=== PATIENT | male | born 1960 | race Caucasian/White ===

== ENCOUNTER 2016-07-08 18:27 | Inpatient (IN) | payer OTHER ==
[~2016-07-08] VITALS: Ht 172.7 cm; Wt 68.2 kg
--- NOTE | ~2016-07-08 | HC ---
[facility] [place] [address] CONSULTATION Name: ADEBAYO COPPOLA Room #: 432-P ADM IN ..#: [id number] Admission: 07/08/16 Attend Phys: Carmelo Beavers MD Discharge: Date of : 56 Report #: [id number] THIS REPORT FOR: //name// CC: [facility] physician/PCP Carmelo Beavers HISTORY OF PRESENT ILLNESS: The patient is a 56-year-old male who I actually been acquainted with from admission last August. Admitted with a CVA. Recently released from the [facility] longterm, for an arms violation. He had actually had a cardiac catheterization here in August of last year, normal coronary arteries. He had no prior strokes. Although he states he had some difficulty with ambulating and the CT of the brain revealed some prior infarcts. The echocardiogram previously had been in the lower limits of normal. Apparently, there was some slurred speech, which appears to have cleared, some question of hypovolemia. He has been living in houses that he rehabs so he does not really have place of residence. He had been on no home medications. He currently is on aspirin, meclizine, Zofran, levothyroxine, atorvastatin. PAST MEDICAL HISTORY: Positive for the cardiac catheterization last year and some questionable old CVA, LV function lower limits of normal, some DJD, hypothyroidism, femur fracture, arm fracture, right foot surgery x 2. SOCIAL HISTORY: He has one child. He lives independently. He lives in houses that he rehabs, he is a pack a day a daily alcohol and tobacco user. No illicit drugs. He had previously been to correction for an arms violation, remotely a connected felon he states. REVIEW OF SYSTEMS: Negative except for occasional weakness and some nocturia. FAMILY HISTORY: Parents had premature disease. Two siblings have from cancer, mother and father had an infarct at 62, he believes the mother had a cerebral bleed in her 60s. LABORATORY DATA: Creatinine 1.0, potassium 4.0. Troponin 0.11. This is not significant, this is indeterminate range. It has actually gone down from 0.15. Cholesterol 207, LDL 140, triglycerides 85, HDL 50, drug screen positive for opioids. H and H 11.1 and 33.4. White cell count 6.9. Ultrasound of carotids reveal no evidence hemodynamically significant lesion. MRA no hemodynamically significant stenosis, branch occlusion or no branch occlusion or aneurysms noted on the MRA and MRI, infarction and bilateral cortical subcortical cerebral hemispheres right greater than left. No mass effect. PHYSICAL EXAMINATION: GENERAL: Pleasant, alert, fully voicing no complaints. VITAL SIGNS: Blood pressure 126/82. Pulse is 50s-60s and sinus nadia to sinus. HEENT: Eyes reveal xanthelasmas. Pharynx is clear. NECK: Shows preserved upstrokes without JVD or bruits. [address] [address] CONSULTATION Name: ADEBAYO COPPOLA Room #: 432-P [facility] IN M.R.#: [id number] Admission: 07/08/16 Attend Phys: Carmelo Beavers MD Discharge: Date of : 56 Report #: [id number] LUNGS: Clear, slight prolonged expiratory phase. CARDIOVASCULAR: Regular rate and rhythm, S1, S2. No murmur or gallop. ABDOMEN: Soft. No HSM or abdominal bruit. EXTREMITIES: Reveal no edema. Pulses intact. NEUROLOGIC: Nonfocal and seems to have appropriate normal strength. SKIN: Warm and dry without xanthoma or ulcer. ASSESSMENT: 1. Question of cerebrovascular accident, although no persistent findings, that looks like a subacute strokes on MRI. 2. Hypercholesterolemia. 3. Sinus bradycardia. 4. Anemia. PLAN: We will proceed with CLAUDINE looking for source embolic event. I do not recommend any further cardiovascular testing at this time, but certainly agree with statin and may would even increase the dose of atorvastatin from 20-40. By trying to further plaque stabilization, try VLDL down less than 100, no blood pressure medicines or cardiovascular medicines currently indicated here, aspirin and statin and CLAUDINE in the a.m. This had been discussed with patient, risks and benefits, Dr. Tobias, my partner will be performing. <ELECTRONICALLY SIGNED> By: Mehul Aragon MD, FACC 07/13/16 0904 1046 1131 Mehul Aragon MD, FACC /nt
--- NOTE | ~2016-07-08 | EKG ---
[address] [place] [address] ELECTROCARDIOGRAM REPORT Name: ADEBAYO COPPOLA Room #: 432-P ADM IN M.R.#: [id number] Admission: 07/08/16 Attend Phys: Carmelo Beavers MD Discharge: Date of : 56 Report #: [id number] THIS REPORT FOR: //name// [facility] ED Test Date: 2016-07-08 Test Time: 19:48:06 Pat Name: ADEBAYO COPPOLA Department: Room: 432 Gender: M Social Work Supervisor: LEANDRO : 1960 Requested By: Lili Gallardo Order Number: [id number] MD: Gabriele Tobias Measurements Intervals [place] Rate: 56 P: 63 NE: 162 QRS: -35 QRSD: 103 T: 64 QT: 452 QTc: 437 Interpretive Statements Sinus rhythm Left axis deviation Borderline low voltage, extremity leads Nonspecific T wave abnormality Baseline wander in lead(s) V6 Compared to ECG 08/31/2015 07:59:37 T wave abnormalities are present Electronically Signed On 07-09-2016 9:02:51 CDT by Gabriele Tobias [email or web address] <ELECTRONICALLY SIGNED> By: Gabriele Tobias MD, FACC 07/09/16 0902 47 47 Gabriele Tobias MD, [facility] /EPI
--- NOTE | ~2016-07-08 | HC ---
[facility] [place] [address] CONSULTATION Name: ANATADEBAYO Room #: 432-P ADM IN .R.#: [id number] Admission: 07/08/16 Attend Phys: Carmelo Beavers MD Discharge: Date of : 56 Report #: [id number] THIS REPORT FOR: //name// CC: [facility] physician/PCP Pamela Beavers MD DATE OF SERVICE: 07/11/2016 This is a 56-year-old male patient who was seen by me first time today. This patient has been seen by Dr. Metcalf in the past. This patient complains of nonspecific visual disturbances, which is of moderate severity. It started spontaneously. Exact duration is not clear because this patient is a poor historian. According to the records, this started on the morning of admission. He also has ambulation difficulty, which is also moderately severe and he attributes that to ataxia. That also came spontaneously and he does not know whether he has become any worse or not. He does not know anything, which makes it better or worse. He has a recent history of AL. He said he was managed by cardiology. He said he was taking aspirin and Plavix when this happened. He denies any definite history of atrial fibrillation. He does have some dizziness, he is not having any new respiratory symptoms like respiratory difficulty. PHYSICAL EXAMINATION: Indicate he is alert. He is responsive. His speech looks intact. His fund of knowledge and memory is diminished. Cranial nerve examination 2-12 clinically looks unremarkable, but he complain of fact that his vision has decreased. He is able to count fingers , but his vision is not as good as it was before according to him. His strength looks symmetrical. His problem appeared to be secondary to ataxia. I tried to look at the fundus, but I could not. He does not appear to have any atrial fibrillation. His heart sounds looks unremarkable. He does have some rhonchi, but he does not have any marked respiratory difficulty. His vital signs indicate a blood pressure of 134/111, respiration is 18, pulse is 60, temperature is 98.1. LABORATORY DATA: Indicated that his TSH is high indicating hypothyroidism, his B12 is also on the lower side. His MRI was reviewed and he has multiple strokes in multiple distributions including the occipital lobes. His carotid Doppler is clean and his MRA is clean indicating that the strokes are most likely cardioembolic. IMPRESSION: 1. Multiple stroke in multiple distributions, which are most likely cardioembolic. This is because it is in multiple vascular distribution and his intracranial and extracranial vasculature looks clean. [address] [address] CONSULTATION Name: ADEBAYO COPPOLA Room #: 432-P [facility] IN .R.#: [id number] Admission: 07/08/16 Attend Phys: Carmelo Beavers MD Discharge: Date of : 56 Report #: [id number] 2. Visual disturbances, which is most likely secondary to stroke, which are in occipital region. 3. Hypothyroidism, which may contribute to ataxia, but ataxia may also of multiple stroke this patient has. 4. Low B12. That can increase homocysteine and can increase his chances of having stroke. 5. Smoking, which he must quit because of his cardiac as well as respiratory disease. RECOMMENDATIONS: 1. Cardiology consult to evaluate the patient for any source of embolization from the heart. He needs CLAUDINE and depending upon that CLAUDINE he will also need prolonged monitoring for looking for any atrial fibrillation until the CLAUDINE shows some cause for the patient's stroke. 2. Extensive workup to exclude any other possibility of stroke, which happened in spite of complete antiplatelet therapy and we need to see what we need to do about secondary stroke prophylaxis. 3. More workup including hypercoagulable profile, homocysteine level, cardiolipin antibodies. I had a long talk with this patient and I discussed all of it with the patient and told him that he needs to stop smoking and the plan are going to follow. He understands that. More than 35 minutes of vhpw-ib-[id number] time was spent taking care of this patient and majority of that time was spent counseling the patient about my impression, the workup we are going to do, the things he needs to do including stop smoking and coordinating this patient's care. By: 1258 2100 Gabriele Mason MD /nt
--- NOTE | ~2016-07-08 | TEE ---
[facility] [place] [address] TRANSESOPHAGEAL ECHOCARDIOGRAM Name: FADYNIMISHAADEBAYO Room #: 432-P [facility] IN [facility]#: [id number] Admission: 07/08/16 Attend Phys: Carmelo Beavers MD Discharge: 07/13/16 Date of : 56 Date of Service: 07/13/16 0703 Report #: [id number] THIS REPORT FOR: //name// Transesophageal Echocardiography (Report amended ) Ordering physician: Pamela Metcalf Referring physician: Learning Program Manager: Clarissa Doss Nurse: Cherri Nixon RN Indications/History: CVA BP: 124 / HR: 71bpm Height: 68in Weight: 150lb 69 Study data: 2D, complete spectral Doppler, and color Doppler. Location: Echo laboratory. Routine. Informed consent was obtained. Patient was kept NPO. Conscious sedation was administered by cardiology staff. Versed:5mg IV.Fentenyl: 75mcg IV. Topical anesthesia was obtained using Cetacaine. The probe was passed without difficulty. Intravenous contrast (agitated saline) was administered. The probe was withdrawn after the study. Image quality was adequate. The patient tolerated the procedure well. There were no complications. Contrast: Agitated saline demonstrated no evidence of shunt. Findings: Left ventricle: The cavity size was normal. Wall thickness was normal. Systolic function was normal in the range of 50% to 55%. Wall motion was normal. Trabeculations of left ventricle raise concern over the possibility of left ventricular noncompaction. Correlation with MRI suggested. Right ventricle: The cavity size was normal. Systolic function was normal. Right atrium: The atrium was normal in size. Left atrium: The atrium was normal in size. No evidence of thrombus in the atrial cavity or appendage. The appendage was of normal size. [address] [address] TRANSESOPHAGEAL ECHOCARDIOGRAM Name: ADEBAYO COPPOLA Room #: 432-P [facility] IN [place]#: [id number] Admission: 07/08/16 Attend Phys: Carmelo Beavers MD Discharge: 07/13/16 Date of : 56 Date of Service: 07/13/16 0703 Report #: [id number] Atrial septum: No defect or patent foramen ovale was identified with bubble study. Aortic valve: Trileaflet; mildly sclerotic leaflets. Doppler: There was no stenosis. Mild regurgitation. Mitral valve: Structurally normal valve. Doppler: There was no evidence for stenosis. Mild regurgitation. Tricuspid valve: Structurally normal valve. Doppler: There was no evidence for stenosis. Trivial regurgitation. Pulmonic valve: Structurally normal valve. Doppler: There was no evidence for stenosis. Trivial regurgitation. Pericardium: There was no pericardial effusion. Aorta: There was no atheroma. There was no evidence for aneurysm. Aortic root: The aortic root was normal in size. Ascending aorta: The ascending aorta measured at the upper limits of normal. Contrast: Agitated saline demonstrated no evidence of shunt. Conclusions 1. Left ventricle: Systolic function was normal in the range of 50% to 55%. 2. Left atrium: No evidence of thrombus in the atrial cavity or appendage. 3. Atrial septum: No defect or patent foramen ovale was identified with bubble study. 4. Aortic valve: Trileaflet; mildly sclerotic leaflets. There was no stenosis. Mild regurgitation. 5. Mitral valve: Structurally normal valve. Mild regurgitation. 6. Pericardium, extracardiac: There was no pericardial effusion. 7. Aorta: There was no atheroma. There was no evidence for aneurysm. 8. Aortic root: The aortic root was normal in size. <ELECTRONICALLY SIGNED> By: Gabriele Tobias MD, [facility] 07/14/16 0943 0703 0943 Gabriele Tobias MD, FACC /bunny
--- NOTE | ~2016-07-08 | 2DMMODE ---
[facility] [place] [address] 2 D/M-MODE ECHOCARDIOGRAM Name: ADEBAYO COPPOLA Room #: 432-P [facility] IN ..#: [id number] Admission: 07/08/16 Attend Phys: Carmelo Beavers MD Discharge: Date of : 56 Date of Service: 07/09/16 1048 Report #: [id number] THIS REPORT FOR: //name// APPROVED REPORT EXAM: Comprehensive 2D, Doppler, and color-flow Echocardiogram Patient Location: Bedside/Room 432 Blood Pressure: 124/69 mmHg HR: 60 bpm Rhythm: NSR Other Information Study Quality: Good Indications Slurred speech. Question TIA. Echo Enhancing Agent Indication: Rule out Shunt Agent/Amount Used: Agitated Saline cc 2D Dimensions RVDd: 36.61 mm LVEF(%): 44.62 (>50%) IVSd: 8.71 (7-11mm) LVOT Diam: 23.41 (18-24mm) LVDd: 58.39 mm PWd: 9.49 (7-11mm) Ascending Aorta: 38.31 mm LVDs: 45.25 (25-40mm) Aortic Root: 39.00 mm Jordan's LVEF: 44.62 % Volumes Left Atrial Volume (Systole) Single Plane 4CH: 45.01 mL Single Plane 2CH: 52.15 mL LA ESV Index: 29.00 mL/m2 Aortic Valve AoV Peak Jose.: 1.36 m/s AI PHT: 687.11 ms AO Peak Gr.: 7.40 mmHg LV Max P.68 mmHg LV Max: 0.96 m/s AI Vmax: 4.56 m/s AI [place]: 1.92 m/s2 [facility] [address] [place] [address] 2 D/M-MODE ECHOCARDIOGRAM Name: ADEBAYO COPPOLA Room #: 432-P ADM IN .R.#: [id number] Admission: 07/08/16 Attend Phys: Carmelo Beavers MD Discharge: Date of : 56 Date of Service: 07/09/16 1048 Report #: [id number] Mitral Valve MV PHT: 73.85 ms MV E Max Jose.: 0.67 m/s E/A Ratio: 1.5 MV A Jose.: 0.45 m/s MV Decel. Time: 254.65 ms TDI E/Lateral E': 7.00 E/Medial E': 8.00 Pulmonary Valve PV Peak Jose.: 0.72 m/s PV Peak Gr.: 2.05 mmHg Tricuspid Valve TR Peak Jose.: 2.10 m/s RAP Estimate: 5.00 mmHg TR Peak Gr.: 17.56 mmHg RVSP: 23.00 mmHg Left Ventricle Left ventricle is mildly dilated. Cannot rule out hypokinesis involving base of inferior wall. There is normal left ventricular wall thickness. Left ventricular systolic function is mildly decreased. LVEF is 45%. Grade II - pseudonormal filling dynamics. Right Ventricle The right ventricle is normal size. The right ventricular systolic function is normal. Atria The left atrium size is normal. Injection of bubbles documented no interatrial shunt. The right atrium size is normal. Aortic Valve The aortic valve is mildly sclerotic Mild aortic regurgitation. There is no aortic valvular stenosis. Mitral Valve The mitral valve is normal in structure. Mild to moderate mitral regurgitation. There is no mitral valve stenosis. Tricuspid Valve The tricuspid valve is normal in structure. There is trace tricuspid regurgitation. The right atrial pressure is estimated at 5 mmHg. Right ventricular systolic pressure is estimated at 23 mmHg. Pulmonic Valve The pulmonary valve is normal in structure. Trace pulmonic [address] [address] 2 D/M-MODE ECHOCARDIOGRAM Name: KATHIESHAWNADEBAYO Room #: 432-P [facility] IN ..#: [id number] Admission: 07/08/16 Attend Phys: Carmelo Beavers MD Discharge: Date of : 56 Date of Service: 07/09/16 1048 Report #: [id number] regurgitation. Great Vessels Aortic root is mildly dilated. The ascending aorta is mildly dilated. IVC is normal in size and collapses >50% with inspiration. Pericardium There is no pericardial effusion. <Conclusion> Left ventricle is mildly dilated. Left ventricular systolic function is mildly decreased. LVEF 45%. Grade II - pseudonormal filling dynamics. Cannot rule out hypokinesis involving base of inferior wall. The aortic valve is mildly sclerotic, mild regurgitation, no stenosis. The mitral valve is normal in structure. Mild to moderate mitral regurgitation. There is trace tricuspid regurgitation. The right atrial pressure is estimated at 5 mmHg. Right ventricular systolic pressure is estimated at 23 mmHg. There is no pericardial effusion. <ELECTRONICALLY SIGNED> By: Gabriele Tobias MD, FACC 07/09/16 1048 1048 1048 Gabriele Tobias MD, FACC /INF
--- NOTE | ~2016-07-08 | EKG ---
[address] [address] ELECTROCARDIOGRAM REPORT Name: ADEBAYO COPPOLA Room #: 432-P ADM IN M.R.#: [id number] Admission: 07/08/16 Attend Phys: Carmelo Beavers MD Discharge: Date of : 56 Report #: [id number] THIS REPORT FOR: //name// Test Date: 2016-07-12 Test Time: 09:51:37 Pat Name: ADEBAYO COPPOLA Department: Room: 432 P Gender: M Warehouse Guard: GRACE : 1960 Requested By: Carmelo Beavers Order Number: [id number] MD: Gabriele Tobias Measurements Intervals [place] Rate: 51 P: 58 MA: 166 QRS: -11 QRSD: 104 T: -28 QT: 479 QTc: 442 Interpretive Statements Sinus rhythm Low voltage, extremity leads Compared to ECG 07/08/2016 19:48:06 No significant change was found Electronically Signed On 07-13-2016 9:06:47 CDT by Gabriele Tobias [email or web address] <ELECTRONICALLY SIGNED> By: Gabriele Tobias MD, [facility] 07/13/1606 0 0 Gabriele Tobias MD, [facility] /EPI
--- NOTE | ~2016-07-08 | HC ---
[facility] [place] [address] CONSULTATION Name: ADEBAYO COPPOLA Room #: 432-P [facility] IN .R.#: [id number] Admission: 07/08/16 Attend Phys: Carmelo Beavers MD Discharge: Date of : 56 Report #: [id number] THIS REPORT FOR: //name// CC: [facility] physician/PCP Carmelo Beavers DATE OF SERVICE: 07/10/2016 HISTORY OF PRESENT ILLNESS: The patient is a 56-year-old white male who was noted to be recently released from group home approximately 6 months ago. He had been staying with his ex-. He was premorbidly independent, ambulatory without gait aids. He had the onset of dizziness, vision changes, lower extremity weakness. He was admitted to [facility] and MRI revealed multiple strokes, bilateral hemispheres. He had some right-hand clumsiness, slurred speech. Neurology is involved. We are seeing him in rehabilitation medicine consultation. PAST MEDICAL HISTORY: Includes tobacco abuse which was active premorbidly, every day smoker. PAST SURGICAL HISTORY: Included right foot surgery x2, left arm fracture, left femur fracture. ALLERGIES: No known drug allergies. MEDICATIONS: Please see the full medication listing. SOCIAL HISTORY: Apparently, evicted from his ex-'s house. He had been staying with his brother. There is a daughter that is in town as well. Presently, he is noted to be homeless. Did not utilize gait aids premorbidly. REVIEW OF SYSTEMS: Did not offer any current complaints of chest pain, shortness of breath or abdominal discomfort. Complains of the right arm discoordination. He has some balance deficits. Notes his visual problems are overall better and the dizziness appears improved. No focal extremity pain complaints. PHYSICAL EXAMINATION: GENERAL: A 56-year-old white male in no obvious distress. He is alert, oriented. VITAL SIGNS: Last recorded temperature 98.3, pulse 62, respirations 18 and blood pressure 127/74. HEENT: Appeared to be benign. NEUROLOGIC: Cranial nerves are grossly intact. Facies are symmetric. He has functional range of motion of both upper extremities. He does have some problems with fine finger dexterity and [id number]-[id number] right upper extremity [facility] [address] [place] [address] CONSULTATION Name: ADEBAYO COPPOLA Room #: 432-P [facility] IN ..#: [id number] Admission: 07/08/16 Attend Phys: Carmelo Beavers MD Discharge: Date of : 56 Report #: [id number] more than left upper extremity with some decreased coordination noted. Lower extremities functional range of motion, strength is a grade 4+/5. He may have some mild decreased coordination as well. Tone appeared to be intact. Sit to stand is contact guard assist and he did ambulate 20 feet mod assist with a front-wheeled walker. Speech therapy is involved and notes moderate cognitive deficits with severe memory deficits. ASSESSMENT: A 56-year-old right-handed white male with the following problem list: 1. Multiple bilateral hemispheric strokes. 2. Right upper extremity greater than lower extremity clumsiness. 3. Dysarthria. 4. Gait instability. 5. Moderate cognitive deficits with significant decreased memory. 6. Tobacco abuse. 7. Currently homeless. PLAN: Therapies are underway as noted above. Insurance issues will be checked into regarding a rehabilitation stay. While he is homeless, he does have contacts that he noted with his brother and with his daughter, so there may be some potential possibilities for him as far as a living situation. At this point, we will continue to follow along with you regarding his rehab therapy needs. By: 1324 1613 Adebayo Romero MD /nt
[2016-07-08 05:00] VITALS: BP 122/78
[~2016-07-08 18:27] MED LIST: AUGMENTIN 875-1 EACH PO
[2016-07-08 18:31] VITALS: BP 116/78
[2016-07-08 18:47] LABS: ABSOLUTE NEUTROPHILS 7.1 thou/uL (1.4-8.2); BASOPHILS 0.4 % (0.0-2.0); EOSINOPHILS 0.2 % (0.0-3.0); HEMOGLOBIN 12.1 gm/dL (14.0-18.0); LYMPHOCYTES 10.9 % (24.0-44.0); MCH 31.3 pg (26.0-34.0); MCHC 33.6 g/dL (28.0-37.0); MCV 93.1 fL (80.0-100.0); MONOCYTES 5.1 % (1.0-8.0); PLATELET COUNT 135 thou/uL (150-400); POLYS 83.4 % (36.0-66.0); RBC 3.87 mil/uL (4.50-6.00); WBC 8.5 thou/uL (4.0-11.0)
[2016-07-08 18:56] LABS: CALCIUM 8.9 mg/dL (8.5-10.1); CREATININE 0.9 mg/dL (0.6-1.3)
[2016-07-08 18:58] LABS: MANUAL DIFF NO
[2016-07-08 21:02] VITALS: BP 116/78; BP 135/87
[2016-07-08 21:30] VITALS: BP 78/58
[2016-07-09 04:00] VITALS: BP 98/59
[2016-07-09 05:12] VITALS: BP 122/78
[2016-07-09 06:58] LABS: TSH 27.913 uIU/mL (0.358-3.740)
[2016-07-09 07:55] VITALS: BP 124/69
[2016-07-09 08:35] LABS: CHOLESTEROL 207 mg/dL (<200); HDL CHOLESTEROL 50 mg/dL (>40); LDL CHOLESTEROL 140 mg/dL (<100); TC:HDL 4.1 Ratio (Not establshd); TRIGLYCERIDE 85 mg/dL (<150); VLDL 17 mg/dL (<40)
[2016-07-09 16:07] VITALS: BP 122/77
[2016-07-09 20:15] VITALS: BP 90/66
[2016-07-09 21:29] LABS: GLYCOHEMOGLOBIN (HGB A1C) 4.8 % (4.8-5.6)
[2016-07-10 04:20] LABS: HEMATOCRIT 33.4 % (42.0-52.0); HEMOGLOBIN 11.1 gm/dL (14.0-18.0); MCH 30.8 pg (26.0-34.0); MCHC 33.1 g/dL (28.0-37.0); MCV 93.1 fL (80.0-100.0); RBC 3.59 mil/uL (4.50-6.00); RDW 15.2 % (10.5-14.5); WBC 6.9 thou/uL (4.0-11.0)
[2016-07-10 04:32] LABS: CALCIUM 8.2 mg/dL (8.5-10.1); POTASSIUM 3.8 mmol/L (3.5-5.1)
[2016-07-10 05:50] VITALS: BP 132/83
[2016-07-10 07:15] VITALS: BP 127/74
[2016-07-10 15:10] VITALS: BP 135/82
[2016-07-10 15:15] LABS: AMP/METHAMP Negative (Negative); BARBITURATES Negative (Negative); BENZODIAZEPINES Negative (Negative); COCAINE Negative (Negative); METHADONE Negative (Negative); OPIATES POSITIVE (Negative); PCP Negative (Negative); THC Negative (Negative)
[2016-07-10 20:00] VITALS: BP 128/91
[2016-07-11 04:00] VITALS: BP 129/71
[2016-07-11 08:26] VITALS: BP 134/111
[2016-07-11 14:39] LABS: ALBUMIN 3.2 g/dL (3.4-5.0); CALCIUM 8.4 mg/dL (8.5-10.1); TOTAL BILIRUBIN 0.5 mg/dL (<0.1-1.0); TOTAL PROTEIN 6.1 g/dL (6.4-8.2)
[2016-07-11 16:16] VITALS: BP 154/79
[2016-07-11 20:00] VITALS: BP 145/90
[2016-07-12 04:00] VITALS: BP 128/83
[2016-07-12 08:15] VITALS: BP 126/82
[2016-07-12 16:23] VITALS: BP 118/76
[2016-07-12 20:00] VITALS: BP 141/86
[2016-07-13 04:00] VITALS: BP 139/82
[2016-07-13 14:11] LABS: SYPHILIS AB Negative (Negative)
[2016-07-13] MEDS ORDERED: LIPITOR 20 MG T20 M1 PO (15:26)
[2016-07-13] MEDS ORDERED: ASPIR 8181 MG PO (15:26)
[2016-07-13] MEDS ORDERED: TIROSINT75 MCG PO (15:27)
[2016-07-13] MEDS ORDERED: VITAMIN B-1100 M2 PO (15:29)
[2016-07-14 22:06] LABS: ANTITHROMBIN III 117 % (75-135); DIL. RUSSELL VIPER VENOM 42.1 sec (0.0-44.0)
== END 2016-07-13 18:20 | DRG 66 ==
LOC: ER 18:27 → EROBS 20:26 → 4E 20:26
PROVIDERS: Emergency Medicine; Hospitalist; Nurse Practitioner; Psychiatry & Neurology Neurology; Psychiatry & Neurology Neuromuscular Medicine
DX: I63.9 Cerebral infarction, unspecified (principal); F17.210 Nicotine dependence, cigarettes, uncomplicated; R11.2 Nausea with vomiting, unspecified; F19.90 Other psychoactive substance use, unspecified, uncomplicated; E03.9 Hypothyroidism, unspecified; M19.90 Unspecified osteoarthritis, unspecified site; E78.00 Pure hypercholesterolemia, unspecified; F71 Moderate intellectual disabilities; H53.9 Unspecified visual disturbance; R00.1 Bradycardia, unspecified; D64.9 Anemia, unspecified; R47.1 Dysarthria and anarthria; E86.0 Dehydration; Z80.9 Family history of malignant neoplasm, unspecified; Z82.49 Family history of ischemic heart disease and other diseases of the circulatory system; Z87.81 Personal history of (healed) traumatic fracture; Z71.6 Tobacco abuse counseling; Z59.0 Homelessness; Z23 Encounter for immunization; Z86.73 Personal history of transient ischemic attack (TIA), and cerebral infarction without residual deficits
CPT/HCPCS: 10183

== ENCOUNTER 2016-07-13 13:54 | Inpatient (IN) | payer OTHER ==
[~2016-07-13] VITALS: Ht 172.7 cm; Wt 67.8 kg
--- NOTE | ~2016-07-13 | PLAN ---
[facility] [place] [address] REHAB UNIT PLAN OF CARE Name: JUANCARLOS COPPOLA Room #: 513-P ADM IN M.R.#: [id number] Admission: 07/13/16 Attend Phys: Juancarlos Romero MD Discharge: Date of : 56 Report #: [id number] THIS REPORT FOR: //name// CC: Juancarlos Romero [facility] physician/PCP DATE OF SERVICE: 07/15/2016 HISTORY: The patient is seen back today in followup. He is in no distress. Temperature 36.7, pulse 56, respirations 18 and blood pressure 121/79. Facies appeared symmetric. No focal calf swelling. He is transferring with min assist and is ambulating 150 feet mod assist without a device. He has been able to go up and down 4 steps with min assist. In occupational therapy, upper body dressing is supervision with lower body dressing contact guard assistance. In speech therapy, he has mild comprehensive deficits with mild expressive deficits. ASSESSMENT: 1. Multiple bilateral hemispheric strokes. 2. Right upper extremity greater than lower extremity clumsiness. 3. Dysarthria. 4. Gait instability. 5. Mild cognitive deficits with some significant decreased memory. 6. Tobacco abuse. 7. Social discharge issues. PLAN: The overall plan of care is based on the preadmission screen, post-admission physician evaluation and information garnered from therapy assessments. 1. Estimated length of stay is probably 2 weeks. 2. Medical prognosis reasonably good. 3. Anticipated interventions includes the interdisciplinary acute inpatient rehabilitation program with PT and OT and speech, rehabilitation nursing assisting regarding medication management, skin care prophylaxis, bowel and bladder issues and nursing education. 4. Anticipated functional outcomes would be for the patient to become modified independent with mobility, ADLs at least at the walker level as well as improvement with cognition. 5. Discharge destination is uncertain at this time. Would anticipate home with family. 6. Expected therapy by discipline includes PT, OT and speech 1 hour per day [address] [address] REHAB UNIT PLAN OF CARE Name: JUANCARLOS COPPOLA Room #: 513-P [facility] IN ..#: [id number] Admission: 07/13/16 Attend Phys: Juancarlos Romero MD Discharge: Date of : 56 Report #: [id number] each, 5 days a week throughout the duration of the acute inpatient rehabilitation stay. <ELECTRONICALLY SIGNED> By: Juancarlos Romero MD 07/17/16 1539 [id number] Juancarlos Romero MD /nt
--- NOTE | ~2016-07-13 | HC ---
[facility] [place] [address] CONSULTATION Name: FADYADEBAYO BANSAL Room #: 513-P ADM IN M.R.#: [id number] Admission: 07/13/16 Attend Phys: Adebayo Romero MD Discharge: Date of : 56 Report #: [id number] THIS REPORT FOR: //name// CC: Adebayo Romero [facility] physician/PCP DATE OF SERVICE: 07/16/2016 ATTENDING PHYSICIAN: Adebayo Romero M.D. BICYCLE MESSENGER: Nicolás Isaacs, PhD CLINICAL PRESENTATION: The patient is a 56-year-old male admitted at the [facility] rehabilitation unit for comprehensive inpatient rehabilitation program to improve functional mobility, activities of daily living and self-care and mental status secondary to cerebrovascular accident. The patient reports having been at his rkkijp-ry-tuw's home and was starting to vomit and when he required emergency medical care. He was then brought in to the hospital and diagnosed with multiple strokes and bilateral hemispheres. Right hand clumsiness and slurred speech was identified at the time of his admission. PAST MEDICAL HISTORY: Tobacco abuse. His assessment on admission to rehab is multiple bilateral hemispheric strokes, right upper extremity greater than lower extremity clumsiness, dysarthria, gait instability, mild cognitive deficits, tobacco abuse and homelessness - social discharge issues. The patient reports being homeless for the past several years. 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 He has one child. The patient is . He has two living brothers. One sister and one younger brother have . TECHNIQUES UTILIZED: Clinical interview, review of medical records, staff consultation and behavioral observation, mini mental status exam 2 standard version. EXAMINATION FINDINGS: The patient was alert and cooperative with the assessment. He accurately described events surrounding his admission. There is no evidence of aphasia. His thoughts are logical and goal oriented. There is no evidence of thought disorder. He does not report auditory or visual hallucinations. The patient described his symptoms to include difficulty in memory, word finding and reading. He also reports subjective feelings of depression and anxiety. [facility] [address] [place] [address] CONSULTATION Name: ADEBAYO COPPOLA Room #: 513-P [facility] IN M.R.#: [id number] Admission: 07/13/16 Attend Phys: Adebayo Romero MD Discharge: Date of : 56 Report #: [id number] His performance on the MMSE 2 brief version is within normal limits with a raw score of 15 of 16. Impairment is noted on the MMSE 2 standard version with a raw score of 24 of 30. He was 1/5 for serial 7's. The patient was able to read and follow a single command. Naming was within normal limits. Difficulty in copying a simple geometric design is noted. Impairment and visual spatial organization and instruction is suggested. 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 Depressive disorder unspecified with anxiety. Polysubstance abuse by history. RECOMMENDATIONS: The patient will likely require assistance in planning and problem solving. Deficits in neurocognitive status will likely interfere with safety when driving. Identifying family support will be helpful in arranging for a safe discharge. He said his daughter has been of benefit in providing intermittent help. One brother is also homeless. Thank you very much for allowing me to provide the consultation on this patient. <ELECTRONICALLY SIGNED> By: Nicolás Isaacs, PhD 07/18/16 1440 [id number] Nicolás Isaacs, PhD /nt
--- NOTE | ~2016-07-13 | H ---
[facility] [place] [address] HISTORY AND PHYSICAL Name: JUANCARLOS COPPOLA Room #: 513-P ADM IN M.R.#: [id number] Admission: 07/13/16 Attend Phys: Juancarlos Romero MD Discharge: Date of : 56 Report #: [id number] THIS REPORT FOR: //name// CC: Juancarlos Romero [facility] physician/PCP DATE OF SERVICE: 07/14/2016 HISTORY OF PRESENT ILLNESS: The patient is a 56-year-old white male noted to recently be released from [facility] approximately 6 months ago. He was staying with his ex-. He was premorbidly independent, ambulatory without gait aids. He had the onset of dizziness, vision changes, and lower extremity weakness. He was admitted to [facility] and an MRI revealed multiple strokes in bilateral hemispheres. He was noted to have some right hand clumsiness and slurred speech. Neurology has been involved. He is noted to have multiple CVAs. He was noted to have significant decline in his functional mobility and ADLs. He has been admitted now for comprehensive acute in-hospital inpatient rehabilitation. PAST MEDICAL HISTORY: Includes tobacco abuse. He was noted to be an active every day smoker. PAST SURGICAL HISTORY: Includes right foot surgery x 2, left arm fracture, and left femur fracture. ALLERGIES: No known drug allergies. MEDICATIONS: Please see the full medication listing. SOCIAL HISTORY: Apparently evicted from his ex-'s house. He had been staying with his brother. There is a daughter that is in town as well. Apparently will be able to stay with one of his family members, likely his daughter, once he is further functionally improved. REVIEW OF SYSTEMS: No complaints of chest pain, shortness of breath, or abdominal discomfort. He has the right arm discoordination and some balance deficits. PHYSICAL EXAMINATION: GENERAL: A 56-year-old white male, in no obvious distress. He is alert and pleasant. VITAL SIGNS: Last recorded temperature 36.6, pulse 55, respirations 20, and blood pressure 125/66. HEENT: Appeared to be benign. Cranial nerves are grossly intact. Facies are symmetric. CHEST: Sounded clear to auscultation. [facility] [address] [place] [address] HISTORY AND PHYSICAL Name: JUANCARLOS COPPOLA Room #: 513-P ADM IN M.R.#: [id number] Admission: 07/13/16 Attend Phys: Juancarlos Romero MD Discharge: Date of : 56 Report #: [id number] CARDIAC: Regular rate and rhythm. ABDOMEN: Bowel sounds positive, nontender. GENITOURINARY: Deferred. RECTAL: Deferred. NEUROLOGIC: He has functional range of motion of both upper extremities with some problems with fine finger dexterity and [id number], right upper extremity more than right lower extremity. Lower extremity functional range of motion with strength grade 4+/5. He has some decreased coordination. Tone appeared to be intact. He is min assist with basic transfers and has been mod assist to try to ambulate a short distance without gait aids. Speech therapy, he is noted to have mild comprehensive deficits and expressive deficits. ASSESSMENT: A 56-year-old white male with the following problem list: 1. Multiple bilateral hemispheric strokes. 2. Right upper extremity greater than lower extremity clumsiness. 3. Dysarthria. 4. Gait instability. 5. Mild cognitive deficits, although he was noted to have some significant decreased memory. 6. Tobacco abuse. 7. Social discharge issues. PLAN: The patient has been admitted for acute in-hospital inpatient rehabilitation. From a post-admission physician evaluation perspective, there are no relevant changes since the preadmission screening. Please see the above review of prior and current medical and functional conditions and comorbidities. Please see the patient's prior and current functional status. He had premorbidly been fully independent without gait aids. As far as risk and complications, he does have the above noted comorbidities. Initial plan of care involves the interdisciplinary acute inpatient rehabilitation program with the goal of maximizing the patient's functional independence, so that he can hopefully return back to his prior living situation or at least to live with one of his family members. Prognosis is reasonably good with estimated length of stay likely 2 weeks, potentially longer as needed depending upon how he progresses. Potential barriers would include his multiple medical comorbidities and decreased functional status. <ELECTRONICALLY SIGNED> By: Juancarlos Romero MD 07/17/16 1539 [id number] Juancarlos Romero MD /nt
[2016-07-13] MEDS ORDERED: ASPIR 8181 MG PO (15:26)
[2016-07-13] MEDS ORDERED: LIPITOR 20 MG T20 M1 PO (15:26)
[2016-07-13] MEDS ORDERED: TIROSINT75 MCG PO (15:27)
[2016-07-13] MEDS ORDERED: VITAMIN B-1100 M2 PO (15:29)
[2016-07-13 18:31] VITALS: BP 169/91
[2016-07-14 04:12] LABS: HEMATOCRIT 32.1 % (42.0-52.0); MCH 31.6 pg (26.0-34.0); MCHC 34.4 g/dL (28.0-37.0); MCV 91.6 fL (80.0-100.0); RBC 3.5 mil/uL (4.50-6.00); RDW 14.3 % (10.5-14.5); WBC 5.7 thou/uL (4.0-11.0)
[2016-07-14 04:15] LABS: CALCIUM 8.8 mg/dL (8.5-10.1); CREATININE 0.9 mg/dL (0.6-1.3); POTASSIUM 3.7 mmol/L (3.5-5.1)
[2016-07-14 05:36] VITALS: BP 125/66
[2016-07-14 16:02] VITALS: BP 176/99
[2016-07-14 16:42] VITALS: BP 159/103
[2016-07-15 04:30] VITALS: BP 121/79
[2016-07-15 08:00] VITALS: BP 150/102
[2016-07-15 15:30] VITALS: BP 133/86
[2016-07-15 19:20] VITALS: BP 140/87
[2016-07-16 03:08] VITALS: BP 122/74
[2016-07-16 07:53] VITALS: BP 143/88
[2016-07-16 16:00] VITALS: BP 134/94
[2016-07-17 04:11] LABS: HEMOGLOBIN 11.3 gm/dL (14.0-18.0); MCH 31.4 pg (26.0-34.0); MCHC 34.3 g/dL (28.0-37.0); MCV 91.5 fL (80.0-100.0); PLATELET COUNT 160 thou/uL (150-400); RBC 3.61 mil/uL (4.50-6.00); RDW 14.4 % (10.5-14.5); WBC 6.2 thou/uL (4.0-11.0)
[2016-07-17 04:17] LABS: MANUAL DIFF YES
[2016-07-17 04:25] LABS: ALBUMIN 3.2 g/dL (3.4-5.0); MAGNESIUM 1.9 mg/dL (1.8-2.4); POTASSIUM 3.8 mmol/L (3.5-5.1); TOTAL BILIRUBIN 0.4 mg/dL (<0.1-1.0); TOTAL PROTEIN 6.1 g/dL (6.4-8.2)
[2016-07-17 06:45] VITALS: BP 124/77
[2016-07-17 07:27] LABS: ABSOLUTE NEUTROPHILS 3.8 thou/uL (1.4-8.2); TOTAL CELL COUNT 100
[2016-07-17 15:31] VITALS: BP 105/64
[2016-07-18 05:46] VITALS: BP 104/72
[2016-07-18 08:30] VITALS: BP 117/62
[2016-07-18 16:16] VITALS: BP 122/85
[2016-07-19 05:17] VITALS: BP 124/83
[2016-07-19 15:45] VITALS: BP 118/80
[2016-07-20 04:00] VITALS: BP 99/63
[2016-07-20 07:34] VITALS: BP 133/93
[2016-07-20 14:48] VITALS: BP 121/88
[2016-07-21 06:11] VITALS: BP 107/62
[2016-07-21 08:03] VITALS: BP 124/87
[2016-07-21 14:59] VITALS: BP 117/74
[2016-07-22 04:25] VITALS: BP 110/66
[2016-07-22 15:45] VITALS: BP 117/82
[2016-07-23 04:41] VITALS: BP 124/84
[2016-07-23 05:41] LABS: ABSOLUTE NEUTROPHILS 4.8 thou/uL (1.4-8.2); EOSINOPHILS 2.4 % (0.0-3.0); HEMOGLOBIN 12.1 gm/dL (14.0-18.0); LYMPHOCYTES 23.6 % (24.0-44.0); MCH 30.6 pg (26.0-34.0); MCHC 33.6 g/dL (28.0-37.0); MONOCYTES 7.1 % (1.0-8.0); PLATELET COUNT 213 thou/uL (150-400); POLYS 65.9 % (36.0-66.0); RBC 3.96 mil/uL (4.50-6.00); WBC 7.3 thou/uL (4.0-11.0)
[2016-07-23 05:42] LABS: MANUAL DIFF NO
[2016-07-23 05:49] LABS: ALBUMIN 3.4 g/dL (3.4-5.0); CALCIUM 8.9 mg/dL (8.5-10.1); MAGNESIUM 1.8 mg/dL (1.8-2.4); POTASSIUM 4.2 mmol/L (3.5-5.1); TOTAL BILIRUBIN 0.5 mg/dL (<0.1-1.0); TOTAL PROTEIN 6.7 g/dL (6.4-8.2)
[2016-07-23 16:23] VITALS: BP 121/77
[2016-07-24 06:10] VITALS: BP 114/77
[2016-07-24 08:52] VITALS: BP 140/96
[2016-07-24 16:00] VITALS: BP 129/91
[2016-07-25 04:26] VITALS: BP 83/51
[2016-07-25 05:29] VITALS: BP 103/62
[2016-07-25 07:55] VITALS: BP 124/88
[2016-07-25 16:00] VITALS: BP 114/81
[2016-07-26 05:36] VITALS: BP 103/56
[2016-07-26 08:00] VITALS: BP 124/91
[2016-07-26 15:45] VITALS: BP 114/86
[2016-07-27 04:00] VITALS: BP 100/60
[2016-07-27 08:35] VITALS: BP 114/83
[2016-07-27] MEDS ORDERED: ASPIR 8181 MG PO (09:27)
[2016-07-27] MEDS ORDERED: AMLODIPINE BESYL5 M1 PO (09:27)
[2016-07-27] MEDS ORDERED: LIPITOR 20 MG T20 M1 PO (09:27)
[2016-07-27] MEDS ORDERED: PANTOPRAZOLE SO40 M1 PO (09:28)
[2016-07-27] MEDS ORDERED: TIROSINT75 MCG PO (09:28)
[2016-07-27 10:29] VITALS: BP 114/83
[2016-07-27 12:11] VITALS: BP 114/83
[2016-07-27 15:19] VITALS: BP 121/79
== END 2016-07-27 16:15 | disposition home health service (06) | DRG 66 ==
PROVIDERS: Nurse Practitioner; Physical Medicine & Rehabilitation
DX: I63.9 Cerebral infarction, unspecified (principal); F82 Specific developmental disorder of motor function; R47.1 Dysarthria and anarthria; G31.84 Mild cognitive impairment of uncertain or unknown etiology; F41.9 Anxiety disorder, unspecified; F32.9 Major depressive disorder, single episode, unspecified; F17.210 Nicotine dependence, cigarettes, uncomplicated; F91.9 Conduct disorder, unspecified; F19.10 Other psychoactive substance abuse, uncomplicated; Z96.698 Presence of other orthopedic joint implants; I10 Essential (primary) hypertension; E78.5 Hyperlipidemia, unspecified; Z79.82 Long term (current) use of aspirin; Z79.899 Other long term (current) drug therapy; Z87.81 Personal history of (healed) traumatic fracture
CPT/HCPCS: 10112